=== PATIENT | male | born 1980 | race Caucasian/White ===

== ENCOUNTER 2023-03-18 14:29 | Emergency (ER) | payer MEDICAID, SELFPAY ==
[2023-03-18 14:30] VITALS: BP 126/97; PULSE 90; RESP 14; TEMP 36.6; O2SAT 96; BMI 29.3
--- NOTE | 2023-03-18 15:11 | ED.RN ---
Per Dr. Corbin, no sitter is needed at this time.
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
--- NOTE | 2023-03-18 15:48 | CM.ED ---
Social Work SW received call from Alejandro Cannon at [facility] who is the patient's community case manager. Pt had been unreachable and didn't not show up for his injection on 03/15/2023 at [facility]. business planning manager had been unable to make contact and patient had not been acting appropriately. business planning manager reports pt is typically clear minded and communicates effectively but with some mumbling. Pt does not appear to be at his baseline. business planning manager is concerned for patient's ability to care for himself currently. SW will notify community case manager Alejandro Cannon at the [facility] when patient is assessed and LOC is determined. Stephania Stahl DRYWALL HANGER HELPER, DATA PROCESSING CONTROL CLERK
[2023-03-18 15:51] LABS: Amphetamine Urine VISTA NEGATIVE (<1000 ng/mL); Barbiturate Urine VISTA NEGATIVE (< 200 ng/mL); Benzodiazepine Urine VISTA NEGATIVE (< 200 ng/mL); Cocaine Urine VISTA NEGATIVE (< 300 ng/mL); Ecstacy Urine VISTA NEGATIVE (< 500 ng/mL); Methadone Urine VISTA NEGATIVE (< 300 ng/mL); PCP Urine VISTA NEGATIVE (< 25 ng/mL); THC Urine VISTA NEGATIVE (< 50 ng/mL); Vista UDS pH Range 6
[2023-03-18 16:22] LABS: Absolute Neutrophil Count 6.7 X10^3/uL (2.0-7.7); Basophil# 0.11 X10^3/uL; Eosinophil# 0.19 X10^3/uL; Eosinophils% 1.8 % (0-5); Hematocrit 48.3 % (40-54); Hemoglobin 15.7 g/dL (13.0-16.5); Lymphocyte % 28.9 % (19-41); Mean Corp Hgb Conc 32.5 g/dL (32-36); Mean Corpuscular Hgb 31.5 pg (27.0-32.0); Mean Platelet Vol. 8.7 fl (6.2-12.0); Monocyte# 0.61 X10^3/uL; Monocyte% 5.7 % (0-10); NRBC Flagged by Analyzer 0 % (0-5); Neutrophil % 62.3 % (47-70); Platelet Count 270 K/mm3 (150-450); RBC Distribution Width CV 13.4 % (11.6-14.6); RBC Distribution Width SD 47.8 fl (35.1-43.9); Red Blood Count 4.98 M/mm3 (4.6-6.2); White Blood Count 10.7 K/mm3 (4.4-11.0)
[2023-03-18 16:29] LABS: Anion Gap 6 (5-15); BUN 5 mg/dL (7-18); BUN/Creat Ratio 5.5 RATIO (10-20); Calcium,Total 9.2 mg/dL (8.5-10.1); Chloride 104 mmol/L (98-107); Creatinine, Serum 0.91 mg/dL (0.70-1.30); EST Glomerular Filtration Rate 96 mL/min (>60); Est Glom Filt Rate - Afr Amer 116 mL/min (>60); Estimated Creatinine Clearance 120.44 ml/min; Glucose 79 mg/dL (74-106); Potassium 4.1 mmol/L (3.5-5.1); Sodium Level 139 mmol/L (136-145)
[2023-03-18 16:34] LABS: Alcohol, Blood (Medical)-Serum < 3.0 mg/dL
[2023-03-18 18:31] VITALS: RESP 16
[2023-03-18 19:28] VITALS: RESP 16
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
[2023-03-18 22:30] VITALS: BP 115/74; PULSE 55; RESP 16; O2SAT 95
--- NOTE | 2023-03-18 23:10 | ED.RN ---
ACCEPTED AT [facility] PHYSICIANS GAVE ETA OF 0130AM.
[2023-03-18 23:41] VITALS: RESP 16
[2023-03-19 01:00] VITALS: RESP 15
[2023-03-19 03:00] VITALS: RESP 15
[2023-03-19 03:05] VITALS: BP 115/74; PULSE 55; RESP 16; TEMP 36.7; O2SAT 95
== END 2023-03-19 03:14 ==
PROVIDERS: Emergency Provider Emergency Medicine; PCP Internal Medicine; Visit Provider Emergency Medicine
DX: F20.2 Catatonic schizophrenia (principal); R62.7 Adult failure to thrive; F32.A Depression, unspecified; F17.210 Nicotine dependence, cigarettes, uncomplicated
CPT/HCPCS: 80048; 80307; 82077; 85025; 87811; 99283